=== PATIENT | female | born 2000 | race Two or more races ===

== ENCOUNTER 2023-12-31 22:51 | Emergency (ER) | payer OTHER ==
[2024-01-01] MEDS: Albuterol/Ipratropium 3.0-0.5 MG/3 ML Neb Soln NEB ONE (00:26)
== END 2024-01-01 01:05 | disposition home or self-care (01) ==
LOC: JP.ED 22:51
DX: J45.20 Mild intermittent asthma, uncomplicated (principal); F17.200 Nicotine dependence, unspecified, uncomplicated; Z79.899 Other long term (current) drug therapy
CPT/HCPCS: 94640; 99284; J7620